=== PATIENT | male | born 1970 | race African-American/Black ===

== ENCOUNTER 2021-05-09 11:21 | Emergency (ER) | payer MEDICAID ==
[~2021-05-09] VITALS: Ht 182.9 cm; Wt 114.0 kg
[2021-05-09 11:29] VITALS: BP 168/88
== END 2021-05-09 12:20 | disposition left against medical advice (07) ==
LOC: ER 11:33
DX: R55 Syncope and collapse (principal)
CPT/HCPCS: 99283